=== PATIENT | female | born 1985 | race Caucasian/White ===

== ENCOUNTER 2018-12-19 18:24 | Emergency (ER) | payer OTHER ==
[~2018-12-19] VITALS: Ht 170.2 cm; Wt 63.5 kg
[~2018-12-19 18:24] MED LIST: ALBUTEROL INH PO; ALESSE-281 EACH; ALPRAZOLAM; AZITHROMYCIN 2250 MG PO; BACTRIM DS TAB1 EACH PO; CLONAZEPAM; CLONAZEPAM 1 MG1 M1; DARVOCET-N 1001 EACH PO; DIFLUCAN PO; FLEXERIL PO; IBUPROFEN 600600 M1 PO; LORTAB 5 MG/5001 TA1 PO; NEXIUM40 MG PO; NORCO 5-325 TA1 EACH PO; PERCOCET 5-3251 EACH PO; PHENERGAN 25 MG25 M1; PREDNISONE 20 M20 MG PO; PYRIDIUM200 MG PO; TOBREX5 ML OP; VALIUM5 MG PO; XANAX 0.25 MG0.25 MG PO; ZANTAC 150MG T150 M1 PO; ZOLOFT25 MG; ZPAK PO
[2018-12-19] MEDS ORDERED: NORCO 5-325 TA1 EAC1 PO (21:16)
[2018-12-19 22:27] VITALS: BP 112/76
== END 2018-12-19 22:32 | disposition home or self-care (01) ==
LOC: ER 18:24
DX: I80.01 Phlebitis and thrombophlebitis of superficial vessels of right lower extremity (principal); Z90.49 Acquired absence of other specified parts of digestive tract